=== PATIENT | female | born 1975 | race Caucasian/White ===

== ENCOUNTER → 2017-01-28 | Day surgery (SDC) | payer BC ==
[2017-01-25 08:27] VITALS: Ht 161.3 cm; Wt 59.1 kg
[2017-01-27 13:22] LABS: BASO % 0.4 %; BASO ABS # 0.02 K/uL (0-0.2); COMPLETE YES; EOS % 0.8 %; HEMATOCRIT 35.8 % (37-47); LYMPH % 39.6 %; MEAN CELL VOLUME 95.5 fL (80-100); MEAN CORPUSCULAR HEMOGLOBIN 31.7 pg (25-34); MEAN CORPUSCULAR HGB CONC 33.2 g/dl (32-36); MEAN PLATELET VOLUME 9.4 fL (7.4-10.4); MONO % 5.6 %; NEUT % 53.6 %; PLATELET COUNT 219 K/uL (130-400); RED BLOOD COUNT 3.75 M/uL (4.2-5.4)
[2017-01-27 13:39] LABS: BUN/CREATININE RATIO 18.6 (10-20); CALCIUM 8.5 mg/dl (8.5-10.1); CREATININE 0.74 mg/dl (0.60-1.20); POTASSIUM 3.9 mmol/L (3.5-5.1)
[~2017-01-28] VITALS: Ht 161.3 cm; Wt 59.1 kg
[~2017-01-28] MED LIST: ATROPINE SULFATE 0.1 MG/ML 5ML SYR IV PRN; CEFAZOLIN 2000 MG/60 ML D5W IV SCH; EpHEDrine SULFATE INJ 50 MG/ML AMP IV PRN; FENTANYL CITRATE INJ 50 MCG/1 ML 2 ML VIAL IV PRN; HYDR-5688 PO; HYDROCODONE/ACETAMOPHEN 5/325MG TAB PO PRN; LACTATED RINGER'S 1000ML 1,000 ML IV SCH; LIDOCAINE HCL 1% 20 ML VIAL ONE; MIDAZOLAM HCL 1 MG/ML 2ML VIAL ONE; ONDANSETRON INJ 2 MG/ML 2 ML VIAL IV PRN; ONDANSETRON INJ 2 MG/ML 2 ML VIAL ONE; SODIUM CHLORIDE 0.9% 1000ML 1,000 ML IV SCH; TAMO20TA9 PO
--- NOTE | 2017-01-28 09:22 | Discharge Instructions-[facility] ---
Discharge Instructions Date of Service Jan 28, 2017. Visit Reason for Visit: Hx Of Breast Ca, Port A Cath In Place Discharge Discharge Diagnosis / Problem: port in place, h/o breast cancer Discharge Goals Goal(s): Decrease discomfort, Improve function Activity Recommendations Activity Limitations: as noted below Lifting Limitations: gradually increase as tolerated Exercise/Sports Limitations: until after follow-up appointment May Resume Sexual Activity: when tolerated Shower/Bathe: keep incision dry (may shower over incision on Sun 01/30) Driving or Machine Use: resume 1 day after discharge SPECIAL CARE INSTRUCTIONS: * Cover incisions and change daily for comfort/drainage. * Leave steri strips in place * May use ibuprofen for pain as tolerated. * Expect some swelling and bruising. Call your doctor if: * Temperature above 101 degrees * Pain not relieved by pain medicine ordered * There is increased drainage or redness from any incision * You have any unanswered questions or concerns [phone]. FOLLOW UP VISIT: If not already scheduled, please call the office for a follow-up visit. for 2 weeks- suture removal- small knots at end of suture OFFICE PHONE NUMBER: Dr. Whalen Office Anesthesia . Post Anesthesia Instructions: If you have had General Anesthesia or IV Sedation: * Do not drive today. * Resume driving when surgeon permits. * Do not make important decisions or sign legal documents today. * Call surgeon for: 1. Temperature elevations greater than 101 degrees F. 2. Uncontrollable pain. 3. Excessive bleeding. 4. Persistent nausea and vomiting. 5. Medication intolerance (nausea, vomiting or rash). * For nausea and vomiting use only clear liquids such as: tea, soda, bouillon until nausea subsides, then gradually increase diet as tolerated. * If you have any concerns or questions, call your surgeon's office. If physician is unavailable and it is an emergency, call 911 or go to the nearest emergency room. . Diet Recommendations Home Diet: resume previous diet Pending Studies Studies pending at discharge: no Medical Emergencies . Who to Call and When: Medical Emergencies: If at any time you feel your situation is an emergency, please call 911 immediately. . Non-Emergent Contact Non-Emergency issues call your: Primary Care Provider, Surgeon . . "Provider Documentation" section prepared by Efren Whalen. .
--- NOTE | 2017-01-28 10:17 | History & Physical Bridge - [place] ---
H&P Re-Evaluation Bridge Note: I have examined the patient, reviewed the History & Physical and in the interval since the performance of the History & Physical I have noted the following changes of clinical significance: No changes noted
[2017-01-28 10:55] VITALS: TEMP 37.3
--- NOTE | 2017-01-28 11:05 | OPERATIVE REPORT ---
DATE OF OPERATION: 01/28/2017 NAME OF OPERATION: Port removal. PREOPERATIVE DIAGNOSIS: History of breast cancer and a port in place. POSTOPERATIVE DIAGNOSIS: Same. STAFF SURGEON: Dr. Whalen. ANESTHESIA: 1% plain lidocaine with sedation. PROCEDURE: The patient was brought in the operating room and placed on the operating table in supine position. Her right chest was prepped and draped in usual fashion. 1% plain lidocaine was used to anesthetize the skin and subcutaneous tissue. The scar was excised and then dissection carried down identifying the port, dissecting it from surrounding tissue and then closing the deep tissue using 2-0 chromic catgut suture then the skin was reapproximated using running subcuticular suture of 5-0 Monocryl. The knots were tied at the end of the Monocryl and Steri-Strips were applied. Dressing was applied and patient transferred to recovery room in stable condition. I attest to the content of the Intraoperative Record and any orders documented therein. Any exceptio ns are noted below.
[2017-01-28 11:15] VITALS: BP 108/73; PULSE 52; O2SAT 100
--- NOTE | 2017-01-28 11:17 | Anesthesia Progress Nt - [facility] ---
Anesthesia Post Op Note Date & Time Jan 28, 2017 at 11:16 Vital Signs Pain Intensity: 0 Vital Signs Past 12 Hours Date Time Temp Pulse Resp B/P Pulse Ox O2 Delivery O2 Flow Rate FiO2 01/28/17 10:55 37.3 59 14 110/73 100 Room Air 01/28/17 09:27 36.9 59 20 119/78 100 Room Air Notes Mental Status: alert / awake / arousable, participated in evaluation Pt Amnestic to Procedure: Yes Nausea / Vomiting: adequately controlled Pain: adequately controlled Airway Patency, RR, SpO2: stable & adequate BP & HR: stable & adequate Hydration State: stable & adequate Anesthetic Complications: no major complications apparent
== END | disposition home or self-care (01) ==
LOC: X.SURG 09:04
PROVIDERS: ATTEND Surgery
DX: Z95.828 Presence of other vascular implants and grafts (principal); Z85.3 Personal history of malignant neoplasm of breast; Z98.890 Other specified postprocedural states; Z80.3 Family history of malignant neoplasm of breast; Z80.49 Family history of malignant neoplasm of other genital organs; Z80.9 Family history of malignant neoplasm, unspecified

== ENCOUNTER → 2017-02-10 | Outpatient (CLI) | payer BC ==
[~2017-02-10] MED LIST changes: -ATROPINE SULFATE 0.1 MG/ML 5ML SYR IV PRN; -CEFAZOLIN 2000 MG/60 ML D5W IV SCH; -EpHEDrine SULFATE INJ 50 MG/ML AMP IV PRN; -FENTANYL CITRATE INJ 50 MCG/1 ML 2 ML VIAL IV PRN; -HYDROCODONE/ACETAMOPHEN 5/325MG TAB PO PRN; -LACTATED RINGER'S 1000ML 1,000 ML IV SCH; -LIDOCAINE HCL 1% 20 ML VIAL ONE; -MIDAZOLAM HCL 1 MG/ML 2ML VIAL ONE; -ONDANSETRON INJ 2 MG/ML 2 ML VIAL IV PRN; -ONDANSETRON INJ 2 MG/ML 2 ML VIAL ONE; -SODIUM CHLORIDE 0.9% 1000ML 1,000 ML IV SCH
--- NOTE | 2017-02-10 11:28 | DIAGNOSTIC IMAGING REPORT ---
BILATERAL UPPER EXTREMITY VENOUS DOPPLER UPPER EXTREMITY VENOUS DOPPLER HISTORY: Pain. Edema. C50.911 Breast cancer, [id number] Swelling of extremity s/p PORT COMPARISON STUDY: None. FINDINGS: The internal jugular veins are patent. There is normal flow within the subclavian veins. There is normal flow and compressibility within the bilateral axillary, basilic, brachial, radial, ulnar, and visualized cephalic veins. IMPRESSION: No DVT within the upper extremity. Electronically signed by: Dani Brandon M.D. 02/10/2017 11:27 AM Dictated Date/Time: 02/10/2017 11:26 AM
== END | disposition home or self-care (01) ==
LOC: C.ULTR 10:42
PROVIDERS: ATTEND Surgery
DX: C50.911 Malignant neoplasm of unspecified site of right female breast (principal); M79.89 Other specified soft tissue disorders

== ENCOUNTER → 2017-07-25 | Outpatient (CLI) | payer BC | END | disposition home or self-care (01) | LOC: C.PAPS 14:35 | PROVIDERS: ATTEND Obstetrics & Gynecology | DX: Z01.419 Encounter for gynecological examination (general) (routine) without abnormal findings (principal) ==

== ENCOUNTER → 2017-08-08 | Outpatient (CLI) | payer BC ==
[~2017-08-08] MED LIST changes: -HYDR-5688 PO
== END | disposition home or self-care (01) ==
LOC: C.LAB 11:32
PROVIDERS: ATTEND Obstetrics & Gynecology
DX: N92.5 Other specified irregular menstruation (principal)

== ENCOUNTER → 2017-11-21 | Outpatient (CLI) | payer BC | END | disposition home or self-care (01) | LOC: C.MAMM 09:06 | PROVIDERS: ATTEND Internal Medicine Hematology | DX: M85.88 Other specified disorders of bone density and structure, other site (principal) ==